=== PATIENT | male | born 1960 | race Hispanic/Latino ===

== ENCOUNTER → 2019-02-14 | Outpatient (CLI) | payer OTHER | END | disposition home or self-care (01) | LOC: SHCH 09:35 | PROVIDERS: ATTEND Internal Medicine Cardiovascular Disease | DX: I25.10 Atherosclerotic heart disease of native coronary artery without angina pectoris (principal) | CPT/HCPCS: 93925 ==

== ENCOUNTER 2019-03-13 07:23 | Day surgery (SDC) | payer OTHER ==
[2019-03-11 13:43] VITALS: BP 140/66
[2019-03-11 13:49] LABS: BASOPHILS % (AUTO) 1.4 % (0.0-5.0); EOSINOPHILS % (AUTO) 14.4 % (0.0-8.0); HEMATOCRIT 46.2 % (42-54); LYMPHOCYTES % (AUTO) 22.4 % (21.0-51.0); MEAN CORPUSCULAR HEMOGLOBIN 30.5 pg (27.0-33.0); MEAN CORPUSCULAR HGB CONC 33.2 g/dL (32.0-36.0); MEAN CORPUSCULAR VOLUME 91.8 fL (79-99); MONOCYTES % (AUTO) 5.5 % (3.0-13.0); NEUTROPHILS % (AUTO) 56.3 % (40.0-77.0); PLATELET COUNT (AUTO) 170 K/uL (130-400); RED BLOOD CELL COUNT(AUTO) 5.03 MIL/uL (4.50-6.20); RED CELL DISTRIBUTION WIDTH 13.9 % (11.0-15.5); WHITE BLOOD COUNT (AUTO) 9.4 K/uL (4.8-10.8)
[2019-03-11 13:50] LABS: APPEARANCE,URINE Clear (CLEAR); BILIRUBIN,URINE Negative (NEGATIVE); COLOR,URINE Yellow (YELLOW); GLUCOSE, URINE (UA) Negative (NEGATIVE); KETONES,URINE Negative (NEGATIVE); LEUKOCYTE ESTERASE ,URINE Negative (NEGATIVE); NITRATE,URINE Negative (NEGATIVE); OCCULT BLOOD,URINE Negative (NEGATIVE); PROTEIN,URINE Negative (NEGATIVE)
[2019-03-11 14:03] LABS: INR 0.97 (0.85-1.15); PARTIAL THROMBOPLASTIN TIME 29.5 SEC (26.3-35.5); PROTHROMBIN TIME 10.2 SEC (9.6-11.6)
[2019-03-11 14:20] LABS: CREATININE 0.9 mg/dL (0.5-1.5); POTASSIUM 4.6 mmol/L (3.5-5.1)
[~2019-03-13] VITALS: Ht 177.8 cm; Wt 86.5 kg
[2019-03-13] VITALS (7 sets, daily range): BP systolic 120–133; BP diastolic 61–76
[~2019-03-13 07:23] MED LIST: ASPI-555 PO; ATOR-2 PO; LOSA25TA41 PO; SODIUM CHLORIDE 0.9% 1000ML 1,000 ML IV ONE
[2019-03-13] MEDS ORDERED: NITROGLYCERIN 5 MG/ML 10 ML VIAL IV ONE (10:13)
[2019-03-13] MEDS ORDERED: IODIXANOL 320 MG/ML 100 ML VIAL ONE (10:13)
[2019-03-13] MEDS ORDERED: LIDOCAINE HCL 2% 20ML ONE (10:13)
[2019-03-13] MEDS ORDERED: HEPARIN SODIUM 1000UNIT/ML 10ML VIAL ONE (11:00)
[2019-03-13] MEDS ORDERED: SODIUM CHLORIDE 0.9% 1000ML 1,000 ML IV SCH (11:28)
[2019-03-13] MEDS ORDERED: DEXTROSE 50%-WATER 50 ML DISP.SYRIN IV PRN (11:30)
[2019-03-13] MEDS ORDERED: GLUCAGON 1MG KIT 1 MG ML IM PRN (11:30)
[2019-03-13] MEDS ORDERED: HYDRALAZINE HCL 20 MG/ML VIAL IV PRN (11:30)
--- NOTE | 2019-03-13 14:15 | NUR ---
PATIENT REFUSED TO STAY UNTIL [address] TAVERAS, NOTIFIED EDIN BUCKLEY TO SIGN AMA IF HE DOES NOT WANT TO COMPLY WITH DR. TAVERAS ORDERS. PATIENT SIGNED AMA AND DECIDED TO GO HOME ON HIS RESPONSIBILITY.
--- NOTE | 2019-03-13 14:40 | NUR ---
BUREAU DIRECTOR GETACHEW MONTES RN NOTIFIED OF PATIENT LEAVING AMA.
--- NOTE | 2019-03-13 14:40 | NUR ---
PATIENT LEFT AMA, HE WALKED WITH . PATIENT LEFT IN NO DISTRESS. NO SOB , NO CP.
== END 2019-03-13 14:40 | disposition left against medical advice (07) ==
LOC: DAH 07:23
PROVIDERS: ATTEND Internal Medicine Cardiovascular Disease
DX: I70.213 Atherosclerosis of native arteries of extremities with intermittent claudication, bilateral legs (principal); I21.3 ST elevation (STEMI) myocardial infarction of unspecified site; I25.10 Atherosclerotic heart disease of native coronary artery without angina pectoris; Z95.5 Presence of coronary angioplasty implant and graft; E78.5 Hyperlipidemia, unspecified; Z86.73 Personal history of transient ischemic attack (TIA), and cerebral infarction without residual deficits; Z79.82 Long term (current) use of aspirin; Z79.899 Other long term (current) drug therapy; I65.22 Occlusion and stenosis of left carotid artery; F17.200 Nicotine dependence, unspecified, uncomplicated
CPT/HCPCS: 36247; 36415; 71045; 75630; 80048; 81003; 85025; 85610; 85730; 93005; A4606; C1760; C1769; C1887; C1893; C1894 ×2; J1644 ×3; J3490 ×2; J7030; Q9967

== ENCOUNTER → 2019-04-02 | Outpatient (CLI) | payer MEDICARE, OTHER ==
[~2019-04-02] MED LIST changes: -SODIUM CHLORIDE 0.9% 1000ML 1,000 ML IV ONE
== END | disposition home or self-care (01) ==
LOC: SHCH 13:15
PROVIDERS: ATTEND Internal Medicine Cardiovascular Disease
DX: I87.2 Venous insufficiency (chronic) (peripheral) (principal)
CPT/HCPCS: 93970